=== PATIENT | male | born 1990 | race Two or more races ===

== ENCOUNTER 2023-04-04 14:06 | Emergency (ER) | payer OTHER ==
[~2023-04-04] VITALS: Ht 175.3 cm; Wt 108.9 kg
[2023-04-04] MEDS ORDERED: COZAAR25 MG PO (14:16)
[2023-04-04] MEDS ORDERED: DICLOFENAC SODI75 MG PO (15:38)
[2023-04-04] MEDS ORDERED: NORFLEX100MG PO (15:39)
== END 2023-04-04 15:46 | disposition home or self-care (01) ==
LOC: ER 14:06
DX: S13.4XXA Sprain of ligaments of cervical spine, initial encounter (principal); V43.02XA Car driver injured in collision with other type car in nontraffic accident, initial encounter; Y93.89 Activity, other specified; Y92.413 State road as the place of occurrence of the external cause